=== PATIENT | female | born 1970 | race Caucasian/White ===

== ENCOUNTER 2025-02-11 08:22 | Emergency (ER) | payer OTHER, SELFPAY ==
[2025-02-11] VITALS (34 sets, daily range): BP systolic 81–128; BP diastolic 46–88; PULSE 96–156; RESP 15–29; TEMP 37.5–37.8; O2SAT 93–98; BMI 18.6
--- NOTE | 2025-02-11 08:38 | ED_ITS ---
HPI - General Adult <Nasir Bustamante MD - Last Filed: 02/12/25 08:06> General Chief complaint: Nausea/Vomiting/Diarrhea Stated complaint: Severe LT back px radiating to front; vomiting Time Seen by Provider: 02/11/25 08:30 History of Present Illness HPI narrative: 54-year-old female with history of prior kidney stone, has 2 days duration nontraumatic left flank pain, nausea, multiple episodes nonbloody emesis, no diarrhea. No cough, shortness of breath, chest pain. No anterior abdominal discomfort. No frequency of urination or painful urination. No black or red stools. No trauma, injury, new activities. Pain worse with any movements. No radiation to the legs. Related Data Allergies Allergy/AdvReac Type Severity Reaction Status Date / Time No Known Drug Allergies Allergy Verified 02/11/25 10:24 Patient History <Nasir Bustamante MD - Last Filed: 02/12/25 08:06> Medical History (Updated 02/11/25 @ 15:25 by Shavonne Carlin, RN) Kidney stones Fibromyalgia Occipital neuralgia Trigeminal neuralgia Surgical History (Updated 02/11/25 @ 15:25 by Shavonne Carlin, RN) H/O: hysterectomy H/O lithotripsy History of section Social History Smoking Status: Never smoker Exam <Nasir Bustamante MD - Last Filed: 02/12/25 08:06> Narrative Exam Narrative: GENERAL: Well-developed patient, in mild distress. HEAD: Atraumatic. Normocephalic. EYES: Pupils equal round and reactive. Extraocular motions intact. No scleral icterus. No injection or drainage. ENT: Nose without bleeding, purulent drainage. Throat without erythema, tonsillar hypertrophy or exudate. Airway patent. NECK: Trachea midline. Non tender CARDIOVASCULAR: Regular rate and rhythm without murmurs, gallops, or rubs. RESPIRATORY: Clear to auscultation. Breath sounds equal bilaterally. No wheezes, rales, or rhonchi. GASTROINTESTINAL: Abdomen soft, non-tender, nondistended. EXTREMITIES: No edema or joint tenderness. BACK: Nontender without deformity or crepitance. No flank tenderness. NEURO: AOx3. Motor functions grossly nonfocal SKIN: No rash or erythema of visible areas Initial Vital Signs Initial Vital Signs: Vital Signs Pulse Rate 111 H 02/11/25 08:37 Blood Pressure 111/83 02/11/25 08:37 Pulse Oximetry 98 02/11/25 08:37 <Christina Duffy DO - Last Filed: 02/11/25 21:20> Initial Vital Signs Initial Vital Signs: Vital Signs Pulse Rate 111 H 02/11/25 08:37 Blood Pressure 111/83 02/11/25 08:37 Pulse Oximetry 98 02/11/25 08:37 Course <Nasir Bustamante MD - Last Filed: 02/12/25 08:06> Orders Ordered: Discontinued Medications Hydromorphone HCl (Hydromorphone 0.5 Mg Inj) 0.5 mg IV NOW ONE Stop: 02/11/25 09:09 Last Admin: 02/11/25 09:23 Dose: 0.5 mg Documented By: Sodium Chloride (Normal Saline 0.9%) 1,000 mls @ 1,000 mls/hr IV BOLUS ONE Stop: 02/11/25 10:06 Last Infusion: 02/11/25 10:53 Dose: Infused Documented By: Admin: 02/11/25 09:24 Dose: 1,000 mls/hr Documented By: Ceftriaxone Sodium 2,000 mg/ (Sodium Chloride) 100 mls @ 200 mls/hr IV NOW ONE Stop: 02/11/25 10:26 Last Admin: 02/11/25 11:07 Dose: Not Given Documented By: TETO Sodium Chloride (Normal Saline 0.9%) 1,000 mls @ 1,000 mls/hr IV BOLUS ONE Stop: 02/11/25 11:25 Last Infusion: 02/11/25 12:45 Dose: Infused Documented By: Admin: 02/11/25 10:45 Dose: 1,000 mls/hr Documented By: TETO Ceftriaxone Sodium 2,000 mg/ (Sodium Chloride) 100 mls @ 200 mls/hr IV NOW ONE Stop: 02/11/25 11:29 Last Infusion: 02/11/25 11:59 Dose: Infused Documented By: Admin: 02/11/25 11:07 Dose: 200 mls/hr Documented By: TETO Sodium Chloride (Normal Saline 0.9%) 1,000 mls @ 1,000 mls/hr IV BOLUS ONE Stop: 02/11/25 14:08 Last Infusion: 02/11/25 14:24 Dose: Infused Documented By: Admin: 02/11/25 13:39 Dose: 1,000 mls/hr Documented By: ABIGAIL Piperacillin Sod/Tazobactam (Sod 4.5 gm/ Sodium Chloride) 100 mls @ 200 mls/hr IV NOW ONE Stop: 02/11/25 13:40 Last Infusion: 02/11/25 14:30 Dose: Infused Documented By: Admin: 02/11/25 13:52 Dose: 200 mls/hr Documented By: ABIGAIL Levofloxacin (Levaquin) 750 mg in 150 mls @ 100 mls/hr IV NOW ONE Stop: 02/11/25 21:26 Last Admin: 02/11/25 20:05 Dose: 100 mls/hr Documented By: KIRSTIE Sodium Chloride (Normal Saline 0.9%) 1,000 mls @ 150 mls/hr IV CONT FLORIN Last Admin: 02/11/25 20:55 Dose: 150 mls/hr Documented By: KIRSTIE Ketorolac Tromethamine (Ketorolac 30 Mg/Ml Vial) 15 mg IV NOW ONE Stop: 02/11/25 09:09 Last Admin: 02/11/25 09:23 Dose: 15 mg Documented By: Ketorolac Tromethamine (Ketorolac 30 Mg/Ml Vial) 15 mg IV NOW ONE Stop: 02/11/25 19:58 Last Admin: 02/11/25 20:05 Dose: 15 mg Documented By: KIRSTIE Ondansetron HCl (Ondansetron 4 Mg/2 Ml Inj) 4 mg IV NOW ONE Stop: 02/11/25 09:09 Last Admin: 02/11/25 09:23 Dose: 4 mg Documented By: Vital Signs Vital signs: Vital Signs - 8 hr 02/11/25 13:30 02/11/25 13:30 02/11/25 14:00 Temperature Pulse Rate 114 H 109 H Respiratory Rate 15 19 Blood Pressure 103/57 L 95/59 L Pulse Oximetry 93 94 02/11/25 14:30 02/11/25 15:00 02/11/25 15:20 Temperature 100.1 F H Pulse Rate 110 H 115 H Respiratory Rate 17 20 Blood Pressure 92/53 L 95/52 L Pulse Oximetry 94 96 02/11/25 15:36 02/11/25 16:00 02/11/25 16:26 Temperature 99.7 F H Pulse Rate 112 H 108 H Respiratory Rate 19 19 Blood Pressure 128/57 L 93/52 L Pulse Oximetry 96 96 02/11/25 16:30 02/11/25 17:00 02/11/25 17:30 Temperature Pulse Rate 107 H 109 H Respiratory Rate 20 18 Blood Pressure 102/59 L 94/55 L 97/53 L Pulse Oximetry 97 96 02/11/25 17:30 02/11/25 18:00 02/11/25 18:00 Temperature Pulse Rate 101 H 105 H Respiratory Rate 16 18 Blood Pressure 101/57 L Pulse Oximetry 96 95 02/11/25 19:24 02/11/25 19:25 02/11/25 19:25 Temperature Pulse Rate 104 H 101 H Respiratory Rate Blood Pressure 90/55 L Pulse Oximetry 96 96 02/11/25 19:30 02/11/25 19:58 02/11/25 20:00 Temperature 99.6 F Pulse Rate 96 H 98 H Respiratory Rate 19 22 Blood Pressure 90/52 L 93/55 L Pulse Oximetry 97 95 02/11/25 20:30 02/11/25 20:38 Temperature Pulse Rate 101 H 98 H Respiratory Rate 23 22 Blood Pressure 81/51 L 89/50 L Pulse Oximetry 96 96 <Christina Duffy, - Last Filed: 02/11/25 21:20> Orders Ordered: Discontinued Medications Hydromorphone HCl (Hydromorphone 0.5 Mg Inj) 0.5 mg IV NOW ONE Stop: 02/11/25 09:09 Last Admin: 02/11/25 09:23 Dose: 0.5 mg Documented By: Sodium Chloride (Normal Saline 0.9%) 1,000 mls @ 1,000 mls/hr IV BOLUS ONE Stop: 02/11/25 10:06 Last Infusion: 02/11/25 10:53 Dose: Infused Documented By: Admin: 02/11/25 09:24 Dose: 1,000 mls/hr Documented By: Ceftriaxone Sodium 2,000 mg/ (Sodium Chloride) 100 mls @ 200 mls/hr IV NOW ONE Stop: 02/11/25 10:26 Last Admin: 02/11/25 11:07 Dose: Not Given Documented By: TETO Sodium Chloride (Normal Saline 0.9%) 1,000 mls @ 1,000 mls/hr IV BOLUS ONE Stop: 02/11/25 11:25 Last Infusion: 02/11/25 12:45 Dose: Infused Documented By: Admin: 02/11/25 10:45 Dose: 1,000 mls/hr Documented By: TETO Ceftriaxone Sodium 2,000 mg/ (Sodium Chloride) 100 mls @ 200 mls/hr IV NOW ONE Stop: 02/11/25 11:29 Last Infusion: 02/11/25 11:59 Dose: Infused Documented By: Admin: 02/11/25 11:07 Dose: 200 mls/hr Documented By: TETO Sodium Chloride (Normal Saline 0.9%) 1,000 mls @ 1,000 mls/hr IV BOLUS ONE Stop: 02/11/25 14:08 Last Infusion: 02/11/25 14:24 Dose: Infused Documented By: Admin: 02/11/25 13:39 Dose: 1,000 mls/hr Documented By: ABIGAIL Piperacillin Sod/Tazobactam (Sod 4.5 gm/ Sodium Chloride) 100 mls @ 200 mls/hr IV NOW ONE Stop: 02/11/25 13:40 Last Infusion: 02/11/25 14:30 Dose: Infused Documented By: Admin: 02/11/25 13:52 Dose: 200 mls/hr Documented By: ABIGAIL Levofloxacin (Levaquin) 750 mg in 150 mls @ 100 mls/hr IV NOW ONE Stop: 02/11/25 21:26 Last Admin: 02/11/25 20:05 Dose: 100 mls/hr Documented By: KIRSTIE Sodium Chloride (Normal Saline 0.9%) 1,000 mls @ 150 mls/hr IV CONT FLORIN Last Admin: 02/11/25 20:55 Dose: 150 mls/hr Documented By: KIRSTIE Ketorolac Tromethamine (Ketorolac 30 Mg/Ml Vial) 15 mg IV NOW ONE Stop: 02/11/25 09:09 Last Admin: 02/11/25 09:23 Dose: 15 mg Documented By: Ketorolac Tromethamine (Ketorolac 30 Mg/Ml Vial) 15 mg IV NOW ONE Stop: 02/11/25 19:58 Last Admin: 02/11/25 20:05 Dose: 15 mg Documented By: KIRSTIE Ondansetron HCl (Ondansetron 4 Mg/2 Ml Inj) 4 mg IV NOW ONE Stop: 02/11/25 09:09 Last Admin: 02/11/25 09:23 Dose: 4 mg Documented By: Vital Signs Vital signs: Vital Signs - 8 hr 02/11/25 13:30 02/11/25 13:30 02/11/25 14:00 Temperature Pulse Rate 114 H 109 H Respiratory Rate 15 19 Blood Pressure 103/57 L 95/59 L Pulse Oximetry 93 94 02/11/25 14:30 02/11/25 15:00 02/11/25 15:20 Temperature 100.1 F H Pulse Rate 110 H 115 H Respiratory Rate 17 20 Blood Pressure 92/53 L 95/52 L Pulse Oximetry 94 96 02/11/25 15:36 02/11/25 16:00 02/11/25 16:26 Temperature 99.7 F H Pulse Rate 112 H 108 H Respiratory Rate 19 19 Blood Pressure 128/57 L 93/52 L Pulse Oximetry 96 96 02/11/25 16:30 02/11/25 17:00 02/11/25 17:30 Temperature Pulse Rate 107 H 109 H Respiratory Rate 20 18 Blood Pressure 102/59 L 94/55 L 97/53 L Pulse Oximetry 97 96 02/11/25 17:30 02/11/25 18:00 02/11/25 18:00 Temperature Pulse Rate 101 H 105 H Respiratory Rate 16 18 Blood Pressure 101/57 L Pulse Oximetry 96 95 02/11/25 19:24 02/11/25 19:25 02/11/25 19:25 Temperature Pulse Rate 104 H 101 H Respiratory Rate Blood Pressure 90/55 L Pulse Oximetry 96 96 02/11/25 19:30 02/11/25 19:58 02/11/25 20:00 Temperature 99.6 F Pulse Rate 96 H 98 H Respiratory Rate 19 22 Blood Pressure 90/52 L 93/55 L Pulse Oximetry 97 95 02/11/25 20:30 02/11/25 20:38 Temperature Pulse Rate 101 H 98 H Respiratory Rate 23 22 Blood Pressure 81/51 L 89/50 L Pulse Oximetry 96 96 Medical Decision Making <Nasir Bustamante MD - Last Filed: 02/12/25 08:06> Lab Data Lab results reviewed: Yes I reviewed the patient's lab results. Lab results narrative: White blood cell count 700, differential pending. We will redraw separate specimen for CBC. Hemoglobin 10.5, platelets 252,000. Basic metabolic panel unremarkable. Normal renal function. Slight transaminase elevation, other LFTs normal. Lipase normal. Urinalysis pending. 02/11/25 10:30 02/11/25 09:20 Labs: Lab Results 02/11/25 02/11/25 02/11/25 Range/Units 09:20 09:58 10:30 WBC 0.7 L* 0.9 L* (4.5-11.0) X10^3/uL RBC 3.73 L 3.73 L (4.0-5.2) X10^6/uL Hgb 10.5 L 10.5 L (12.0-16.0) g/dL Hct 31.8 L 31.9 L (36-46) % MCV 85.3 85.6 (80-100) fL MCH 28.3 28.2 (26-34) PG MCHC 33.1 33.0 (30-36) % RDW 16.4 H 16.6 H (11.6-14.8) % Plt Count 252 255 (150-400) X10^3/uL Neut % (Auto) Not Reportable Not Reportable Lymph % (Auto) Not Reportable Not Reportable [place] % (Auto) Not Reportable Not Reportable Eos % (Auto) Not Reportable Not Reportable Baso % (Auto) Not Reportable Not Reportable Lymph # (Auto) Not Reportable Not Reportable [place] # (Auto) Not Reportable Not Reportable Baso # (Auto) Not Reportable Not Reportable Total Counted 100 100 Seg Neutrophils % 61.0 80.0 H (38-70) % Lymphocytes % (Manual) 33.0 17.0 L (25-45) % Monocytes % (Manual) 5.0 2.0 (2-11) % Eosinophils % (Manual) 1.0 L (2-4) % Basophils % (Manual) 1.0 (0-1) % Neutrophils # (Manual) 427 L 720 L (3088-7450) /uL RBC Morphology See below See below Anisocytosis 2+ H 2+ H Rouleaux 1+ H 1+ H Sodium 140 (137-145) mmol/L Potassium 4.1 (3.4-5.1) mmol/L Chloride 105 (98-107) mmol/L Carbon Dioxide 23 (22-32) mmol/L BUN 23 H (7-17) mg/dL Creatinine 0.52 (0.52-1.04) mg/dL Estimated GFR > 60 (>60) mL/min BUN/Creatinine Ratio 44.2 H (6-22) Glucose 97 (70-100) mg/dL Lactate 2.9 H (0.7-2.1) mmol/L Calcium 9.0 (8.4-10.2) mg/dL Total Bilirubin 1.0 (0.2-1.3) mg/dL AST 51 H (14-36) IU/L ALT 40 H (<35) IU/L Alkaline Phosphatase 96 (38-126) U/L Total Protein 7.9 (6.3-8.2) g/dL Albumin 4.6 (3.5-5.0) g/dL Globulin 3.3 (1.7-4.1) g/dL Albumin/Globulin Ratio 1.4 (1.0-2.8) Lipase 168 (23-300) U/L Urine Color Urine Appearance Urine pH (4.5-8.0) Ur Specific [place] (1.000-1.035) Urine Protein (Negative) Urine Glucose (UA) (Negative) g/dL Urine Ketones (NEGATIVE) Urine Occult Blood (Negative) Urine Nitrate (Negative) Urine Bilirubin (NEGATIVE) Urine Urobilinogen (0.2) E.U./dL Ur Leukocyte Esterase (NEGATIVE) Urine RBC Urine WBC Ur Squamous Epith Cells Ur Transition Epith Cell Ur Renal Epithelial Cell Calcium Oxalate Crystal Uric Acid Crystals Triple Phos Crystals Other Crystals Amorphous Sediment Urine Bacteria Hyaline Casts Granular Casts RBC Casts WBC Casts Other Casts Urine Mucus Urine Trichomonas Urine Yeast Urine Sperm Ur Culture Indicated? Micro UA Comment Vol Urine Centrifuged A.calcoaceticus-baumannii cmplx PCR Not detected (Not Detect) Bacteroides fragilis Not detected (Not Detect) Arielle albicans (PCR) Not detected (Not Detect) Arielle auris (PCR) Not detected (Not Detect) C. glabrata (PCR) Not detected (Not Detect) C. krusei (PCR) Not detected (Not Detect) C. parapsilosis (PCR) Not detected (Not Detect) C. tropicalis (PCR) Not detected (Not Detect) C. neoform/gattii (PCR) Not detected (Not Detect) Enterobacterales (PCR) Detected (Not Detect) E. cloacae complex PCR Not detected (Not Detect) Enterococc faecalis PCR Not detected (Not Detect) Enterococc faecium PCR Not detected (Not Detect) E. coli (PCR) Detected (Not Detect) H. influenzae (PCR) Not detected (Not Detect) Klebsiella aerogenes (PCR) Not detected (Not Detect) Klebsiella oxytoca PCR Not detected (Not Detect) Klebsiella pneumoniae Not detected (Not Detect) List. monocytogenes PCR Not detected (Not Detect) N. meningitidis (PCR) Not detected (Not Detect) Proteus species (PCR) Not detected (Not Detect) Salmonella spp. (PCR) Not detected (Not Detect) Serratia marcescens PCR Not detected (Not Detect) Staphylococcus sp PCR Not detected (Not Detect) Staph aureus (PCR) Not detected (Not Detect) mecA/C & MREJ Resist Gene Not applicable (Not Detect) mecA/C-Methicil Resis Gene Not applicable (Not Detect) mcr-1 Colistin Res Gene PCR Not detected (Not Detect) Staph epidermidis (PCR) Not detected (Not Detect) Staph lugdunensis PCR Not detected (Not Detect) S. maltophilia (PCR) Not detected (Not Detect) Streptococcus sp PCR Not detected (Not Detect) Group A Strep (PCR) Not detected (Not Detect) Strep agalactiae (PCR) Not detected (Not Detect) Strep pneumoniae (PCR) Not detected (Not Detect) P. aeruginosa (PCR) Not detected (Not Detect) Dorene/B-Vanco Res Genes Not applicable (Not Detect) blaIMP Car res Gene PCR Not detected (Not Detect) KPC-Carbap Res Gene PCR Not detected (Not Detect) blaNDM Car Res Gene PCR Not detected (Not Detect) OXA-48 Carbapenem Resis Gene (PCR) Not detected (Not Detect) blaVIM Car Res Gene PCR Not detected (Not Detect) CTX-M Gene Resistance (PCR) Not detected (Not Detect) 02/11/25 02/11/25 02/11/25 Range/Units 11:15 11:20 11:22 WBC (4.5-11.0) X10^3/uL RBC (4.0-5.2) X10^6/uL Hgb (12.0-16.0) g/dL Hct (36-46) % MCV (80-100) fL MCH (26-34) PG MCHC (30-36) % RDW (11.6-14.8) % Plt Count (150-400) X10^3/uL Neut % (Auto) Lymph % (Auto) [place] % (Auto) Eos % (Auto) Baso % (Auto) Lymph # (Auto) [place] # (Auto) Baso # (Auto) Total Counted Seg Neutrophils % (38-70) % Lymphocytes % (Manual) (25-45) % Monocytes % (Manual) (2-11) % Eosinophils % (Manual) (2-4) % Basophils % (Manual) (0-1) % Neutrophils # (Manual) (0798-5538) /uL RBC Morphology Anisocytosis Rouleaux Sodium (137-145) mmol/L Potassium (3.4-5.1) mmol/L Chloride (98-107) mmol/L Carbon Dioxide (22-32) mmol/L BUN (7-17) mg/dL Creatinine (0.52-1.04) mg/dL Estimated GFR (>60) mL/min BUN/Creatinine Ratio (6-22) Glucose (70-100) mg/dL Lactate 1.3 (0.7-2.1) mmol/L Calcium (8.4-10.2) mg/dL Total Bilirubin (0.2-1.3) mg/dL AST (14-36) IU/L ALT (<35) IU/L Alkaline Phosphatase (38-126) U/L Total Protein (6.3-8.2) g/dL Albumin (3.5-5.0) g/dL Globulin (1.7-4.1) g/dL Albumin/Globulin Ratio (1.0-2.8) Lipase (23-300) U/L Urine Color Yellow Urine Appearance Cloudy Urine pH 5.5 (4.5-8.0) Ur Specific [place] 1.015 (1.000-1.035) Urine Protein 1+ H (Negative) Urine Glucose (UA) Negative (Negative) g/dL Urine Ketones Trace H (NEGATIVE) Urine Occult Blood 2+ H (Negative) Urine Nitrate Positive H (Negative) Urine Bilirubin Negative (NEGATIVE) Urine Urobilinogen 0.2 (0.2) E.U./dL Ur Leukocyte Esterase Trace H (NEGATIVE) Urine RBC Cancelled 5-10/hpf H Urine WBC Cancelled 5-10/hpf H Ur Squamous Epith Cells Cancelled None seen Ur Transition Epith Cell Cancelled Ur Renal Epithelial Cell Cancelled Calcium Oxalate Crystal Cancelled Uric Acid Crystals Cancelled Triple Phos Crystals Cancelled Other Crystals Cancelled Amorphous Sediment Cancelled Urine Bacteria Cancelled Many (>30) H Hyaline Casts Cancelled Granular Casts Cancelled RBC Casts Cancelled WBC Casts Cancelled Other Casts Cancelled Urine Mucus Cancelled Urine Trichomonas Cancelled Urine Yeast Cancelled Urine Sperm Cancelled Ur Culture Indicated? Cancelled Specimen cultured Micro UA Comment Cancelled Vol Urine Centrifuged Cancelled 10ml (spun) A.calcoaceticus-baumannii cmplx PCR (Not Detect) Bacteroides fragilis (Not Detect) Arielle albicans (PCR) (Not Detect) Arielle auris (PCR) (Not Detect) C. glabrata (PCR) (Not Detect) C. krusei (PCR) (Not Detect) C. parapsilosis (PCR) (Not Detect) C. tropicalis (PCR) (Not Detect) C. neoform/gattii (PCR) (Not Detect) Enterobacterales (PCR) (Not Detect) E. cloacae complex PCR (Not Detect) Enterococc faecalis PCR (Not Detect) Enterococc faecium PCR (Not Detect) E. coli (PCR) (Not Detect) H. influenzae (PCR) (Not Detect) Klebsiella aerogenes (PCR) (Not Detect) Klebsiella oxytoca PCR (Not Detect) Klebsiella pneumoniae (Not Detect) List. monocytogenes PCR (Not Detect) N. meningitidis (PCR) (Not Detect) Proteus species (PCR) (Not Detect) Salmonella spp. (PCR) (Not Detect) Serratia marcescens PCR (Not Detect) Staphylococcus sp PCR (Not Detect) Staph aureus (PCR) (Not Detect) mecA/C & MREJ Resist Gene (Not Detect) mecA/C-Methicil Resis Gene (Not Detect) mcr-1 Colistin Res Gene PCR (Not Detect) Staph epidermidis (PCR) (Not Detect) Staph lugdunensis PCR (Not Detect) S. maltophilia (PCR) (Not Detect) Streptococcus sp PCR (Not Detect) Group A Strep (PCR) (Not Detect) Strep agalactiae (PCR) (Not Detect) Strep pneumoniae (PCR) (Not Detect) P. aeruginosa (PCR) (Not Detect) [place]ne/B-Vanco Res Genes (Not Detect) blaIMP Car res Gene PCR (Not Detect) KPC-Carbap Res Gene PCR (Not Detect) blaNDM Car Res Gene PCR (Not Detect) OXA-48 Carbapenem Resis Gene (PCR) (Not Detect) blaVIM Car Res Gene PCR (Not Detect) CTX-M Gene Resistance (PCR) (Not Detect) 02/11/25 Range/Units 15:15 WBC (4.5-11.0) X10^3/uL RBC (4.0-5.2) X10^6/uL Hgb (12.0-16.0) g/dL Hct (36-46) % MCV (80-100) fL MCH (26-34) PG MCHC (30-36) % RDW (11.6-14.8) % Plt Count (150-400) X10^3/uL Neut % (Auto) Lymph % (Auto) [place] % (Auto) Eos % (Auto) Baso % (Auto) Lymph # (Auto) [place] # (Auto) Baso # (Auto) Total Counted Seg Neutrophils % (38-70) % Lymphocytes % (Manual) (25-45) % Monocytes % (Manual) (2-11) % Eosinophils % (Manual) (2-4) % Basophils % (Manual) (0-1) % Neutrophils # (Manual) (3013-9279) /uL RBC Morphology Anisocytosis Rouleaux Sodium (137-145) mmol/L Potassium (3.4-5.1) mmol/L Chloride (98-107) mmol/L Carbon Dioxide (22-32) mmol/L BUN (7-17) mg/dL Creatinine (0.52-1.04) mg/dL Estimated GFR (>60) mL/min BUN/Creatinine Ratio (6-22) Glucose (70-100) mg/dL Lactate 1.1 (0.7-2.1) mmol/L Calcium (8.4-10.2) mg/dL Total Bilirubin (0.2-1.3) mg/dL AST (14-36) IU/L ALT (<35) IU/L Alkaline Phosphatase (38-126) U/L Total Protein (6.3-8.2) g/dL Albumin (3.5-5.0) g/dL Globulin (1.7-4.1) g/dL Albumin/Globulin Ratio (1.0-2.8) Lipase (23-300) U/L Urine Color Urine Appearance Urine pH (4.5-8.0) Ur Specific [place] (1.000-1.035) Urine Protein (Negative) Urine Glucose (UA) (Negative) g/dL Urine Ketones (NEGATIVE) Urine Occult Blood (Negative) Urine Nitrate (Negative) Urine Bilirubin (NEGATIVE) Urine Urobilinogen (0.2) E.U./dL Ur Leukocyte Esterase (NEGATIVE) Urine RBC Urine WBC Ur Squamous Epith Cells Ur Transition Epith Cell Ur Renal Epithelial Cell Calcium Oxalate Crystal Uric Acid Crystals Triple Phos Crystals Other Crystals Amorphous Sediment Urine Bacteria Hyaline Casts Granular Casts RBC Casts WBC Casts Other Casts Urine Mucus Urine Trichomonas Urine Yeast Urine Sperm Ur Culture Indicated? Micro UA Comment Vol Urine Centrifuged A.calcoaceticus-baumannii cmplx PCR (Not Detect) Bacteroides fragilis (Not Detect) Arielle albicans (PCR) (Not Detect) Arielle auris (PCR) (Not Detect) C. glabrata (PCR) (Not Detect) C. krusei (PCR) (Not Detect) C. parapsilosis (PCR) (Not Detect) C. tropicalis (PCR) (Not Detect) C. neoform/gattii (PCR) (Not Detect) Enterobacterales (PCR) (Not Detect) E. cloacae complex PCR (Not Detect) Enterococc faecalis PCR (Not Detect) Enterococc faecium PCR (Not Detect) E. coli (PCR) (Not Detect) H. influenzae (PCR) (Not Detect) Klebsiella aerogenes (PCR) (Not Detect) Klebsiella oxytoca PCR (Not Detect) Klebsiella pneumoniae (Not Detect) List. monocytogenes PCR (Not Detect) N. meningitidis (PCR) (Not Detect) Proteus species (PCR) (Not Detect) Salmonella spp. (PCR) (Not Detect) Serratia marcescens PCR (Not Detect) Staphylococcus sp PCR (Not Detect) Staph aureus (PCR) (Not Detect) mecA/C & MREJ Resist Gene (Not Detect) mecA/C-Methicil Resis Gene (Not Detect) mcr-1 Colistin Res Gene PCR (Not Detect) Staph epidermidis (PCR) (Not Detect) Staph lugdunensis PCR (Not Detect) S. maltophilia (PCR) (Not Detect) Streptococcus sp PCR (Not Detect) Group A Strep (PCR) (Not Detect) Strep agalactiae (PCR) (Not Detect) Strep pneumoniae (PCR) (Not Detect) P. aeruginosa (PCR) (Not Detect) Dorene/B-Vanco Res Genes (Not Detect) blaIMP Car res Gene PCR (Not Detect) KPC-Carbap Res Gene PCR (Not Detect) blaNDM Car Res Gene PCR (Not Detect) OXA-48 Carbapenem Resis Gene (PCR) (Not Detect) blaVIM Car Res Gene PCR (Not Detect) CTX-M Gene Resistance (PCR) (Not Detect) Urine Dip Bedside Urine Glucose Negative Bedside Urine Bilirubin - Negative Bedside Urine Ketone - Negative Urine Specific [place] 1.010 Bedside Urine Occult Blood +++ Bedside Urine pH 6 Bedside Urine Protein +/- 15 Bedside Urine Urobilinogen - Negative Bedside Urine Nitrite + Positive Bedside Urine Leukocytes +/- 15 Esterase Point of care testing: Urine Dip Bedside Urine Glucose Negative Bedside Urine Bilirubin - Negative Bedside Urine Ketone - Negative Urine Specific [place] 1.010 Bedside Urine Occult Blood +++ Bedside Urine pH 6 Bedside Urine Protein +/- 15 Bedside Urine Urobilinogen - Negative Bedside Urine Nitrite + Positive Bedside Urine Leukocytes +/- 15 Esterase ECG Data Attestation: I personally reviewed and interpreted this ECG as follows: Interpretation: Sinus tachycardia with rate of 116, no obvious ST segment elevation or depression changes. Movement artifact noted. CO 198, QRS 70, QTC 453. MDM Narrative Medical decision making narrative: 54-year-old female with history of prior kidney stone, 2 days duration nontraumatic left flank pain, mild sinus tachycardia, no fever, looks uncomfortable. No medications taken this far. Multiple episodes emesis. Labs pending. CT abdomen and pelvis noncontrast study ordered. IV fluids, IV Toradol, IV Dilaudid/Zofran. Keep NPO for now. DDX consider left ureteral stone, pyelonephritis, renal abscess, diverticulitis, colitis, lower lobe pneumonia, referred pain from gynecologic process, musculoskeletal, radicular, other. CT abdomen and pelvis noncontrast. Impressions: ?Mild left hydroureteronephrosis secondary to a 4 mm calculus at the ureterovesicular junction. Consider superimposed pyelonephritis. Nonspecific central mesenteric lymphadenopathy. Nonemergent colonoscopy screening recommended. ? See tele radiology report. Elevated lactate, blood cultures requested, IV fluids, IV ceftriaxone. White blood cell count 700 quite low, we will repeat new specimen draw to confirm. ANC 427 low. Might need transfer to hematology/oncology capable facility, as well as Urology capable facility. Weekend coverage Urology through [facility]. Await repeat CBC results. Repeat CBC confirms leukopenia. White blood cell count 900 only. Segmented neutrophils 80%, manual neutrophil count 720. Urinalysis suspicious for infection. IV ceftriaxone given prior. Leukopenia noted. Consider transfer to Urology and Hematology/Oncology capable facility. We will contact urology on-call [facility]. 1330, case discussed with Urology [facility] [place] Dr. Salas who will consult if transferred to their system. 1410, case discussed with [facility] intake, await call back. No beds [facility], [facility] apparently unable to accept, [facility] assisting with placement 1750, case discussed with hospitalist Dr. Jorge Whitmore who accepts for transfer, Urology Dr. Minor will be consulting. 02/11/25 Dr. Duffy 1955: Patient signed out to myself patient is seen and evaluated by myself patient has left 4 mm calculus likely pyelonephritis. Patient has had intermittently soft pressures although she had noted blood pressure tends to run low she does not receive sepsis fluids, she was received IV antibiotics Rocephin and Zosyn patient's white count is quite low not quite neutropenic but ANC was 427 on repeat was slightly higher. Patient's lactate was elevated but improved, has a normal creatinine. Patient's pain has been fairly well controlled since this morning. Awaiting bed assignment patient is aware of plan for transfer for urologic intervention for septic obstructive kidney stone. Patient notes she was starting a little bit of a headache from being still all day she states her flank pain is actually very well controlled she was feeling better than she was earlier. Two of 2 blood cultures have come back positive for Gram-negative bacilli patient had Rocephin this morning followed by Zosyn we will give a dose of Levaquin she should be covered for the next 24 hours. <Christina Duffy, DO - Last Filed: 02/11/25 21:20> Lab Data Labs: Lab Results 02/11/25 02/11/25 02/11/25 Range/Units 09:20 09:58 10:30 WBC 0.7 L* 0.9 L* (4.5-11.0) X10^3/uL RBC 3.73 L 3.73 L (4.0-5.2) X10^6/uL Hgb 10.5 L 10.5 L (12.0-16.0) g/dL Hct 31.8 L 31.9 L (36-46) % MCV 85.3 85.6 (80-100) fL MCH 28.3 28.2 (26-34) PG MCHC 33.1 33.0 (30-36) % RDW 16.4 H 16.6 H (11.6-14.8) % Plt Count 252 255 (150-400) X10^3/uL Neut % (Auto) Not Reportable Not Reportable Lymph % (Auto) Not Reportable Not Reportable [place] % (Auto) Not Reportable Not Reportable Eos % (Auto) Not Reportable Not Reportable Baso % (Auto) Not Reportable Not Reportable Lymph # (Auto) Not Reportable Not Reportable [place] # (Auto) Not Reportable Not Reportable Baso # (Auto) Not Reportable Not Reportable Total Counted 100 100 Seg Neutrophils % 61.0 80.0 H (38-70) % Lymphocytes % (Manual) 33.0 17.0 L (25-45) % Monocytes % (Manual) 5.0 2.0 (2-11) % Eosinophils % (Manual) 1.0 L (2-4) % Basophils % (Manual) 1.0 (0-1) % Neutrophils # (Manual) 427 L 720 L (4803-3840) /uL RBC Morphology See below See below Anisocytosis 2+ H 2+ H Rouleaux 1+ H 1+ H Sodium 140 (137-145) mmol/L Potassium 4.1 (3.4-5.1) mmol/L Chloride 105 (98-107) mmol/L Carbon Dioxide 23 (22-32) mmol/L BUN 23 H (7-17) mg/dL Creatinine 0.52 (0.52-1.04) mg/dL Estimated GFR > 60 (>60) mL/min BUN/Creatinine Ratio 44.2 H (6-22) Glucose 97 (70-100) mg/dL Lactate 2.9 H (0.7-2.1) mmol/L Calcium 9.0 (8.4-10.2) mg/dL Total Bilirubin 1.0 (0.2-1.3) mg/dL AST 51 H (14-36) IU/L ALT 40 H (<35) IU/L Alkaline Phosphatase 96 (38-126) U/L Total Protein 7.9 (6.3-8.2) g/dL Albumin 4.6 (3.5-5.0) g/dL Globulin 3.3 (1.7-4.1) g/dL Albumin/Globulin Ratio 1.4 (1.0-2.8) Lipase 168 (23-300) U/L Urine Color Urine Appearance Urine pH (4.5-8.0) Ur Specific [place] (1.000-1.035) Urine Protein (Negative) Urine Glucose (UA) (Negative) g/dL Urine Ketones (NEGATIVE) Urine Occult Blood (Negative) Urine Nitrate (Negative) Urine Bilirubin (NEGATIVE) Urine Urobilinogen (0.2) E.U./dL Ur Leukocyte Esterase (NEGATIVE) Urine RBC Urine WBC Ur Squamous Epith Cells Ur Transition Epith Cell Ur Renal Epithelial Cell Calcium Oxalate Crystal Uric Acid Crystals Triple Phos Crystals Other Crystals Amorphous Sediment Urine Bacteria Hyaline Casts Granular Casts RBC Casts WBC Casts Other Casts Urine Mucus Urine Trichomonas Urine Yeast Urine Sperm Ur Culture Indicated? Micro UA Comment Vol Urine Centrifuged A.calcoaceticus-baumannii cmplx PCR Not detected (Not Detect) Bacteroides fragilis Not detected (Not Detect) Arielle albicans (PCR) Not detected (Not Detect) Arielle auris (PCR) Not detected (Not Detect) C. glabrata (PCR) Not detected (Not Detect) C. krusei (PCR) Not detected (Not Detect) C. parapsilosis (PCR) Not detected (Not Detect) C. tropicalis (PCR) Not detected (Not Detect) C. neoform/gattii (PCR) Not detected (Not Detect) Enterobacterales (PCR) Detected (Not Detect) E. cloacae complex PCR Not detected (Not Detect) Enterococc faecalis PCR Not detected (Not Detect) Enterococc faecium PCR Not detected (Not Detect) E. coli (PCR) Detected (Not Detect) H. influenzae (PCR) Not detected (Not Detect) Klebsiella aerogenes (PCR) Not detected (Not Detect) Klebsiella oxytoca PCR Not detected (Not Detect) Klebsiella pneumoniae Not detected (Not Detect) List. monocytogenes PCR Not detected (Not Detect) N. meningitidis (PCR) Not detected (Not Detect) Proteus species (PCR) Not detected (Not Detect) Salmonella spp. (PCR) Not detected (Not Detect) Serratia marcescens PCR Not detected (Not Detect) Staphylococcus sp PCR Not detected (Not Detect) Staph aureus (PCR) Not detected (Not Detect) mecA/C & MREJ Resist Gene Not applicable (Not Detect) mecA/C-Methicil Resis Gene Not applicable (Not Detect) mcr-1 Colistin Res Gene PCR Not detected (Not Detect) Staph epidermidis (PCR) Not detected (Not Detect) Staph lugdunensis PCR Not detected (Not Detect) S. maltophilia (PCR) Not detected (Not Detect) Streptococcus sp PCR Not detected (Not Detect) Group A Strep (PCR) Not detected (Not Detect) Strep agalactiae (PCR) Not detected (Not Detect) Strep pneumoniae (PCR) Not detected (Not Detect) P. aeruginosa (PCR) Not detected (Not Detect) Dorene/B-Vanco Res Genes Not applicable (Not Detect) blaIMP Car res Gene PCR Not detected (Not Detect) KPC-Carbap Res Gene PCR Not detected (Not Detect) blaNDM Car Res Gene PCR Not detected (Not Detect) OXA-48 Carbapenem Resis Gene (PCR) Not detected (Not Detect) blaVIM Car Res Gene PCR Not detected (Not Detect) CTX-M Gene Resistance (PCR) Not detected (Not Detect) 02/11/25 02/11/25 02/11/25 Range/Units 11:15 11:20 11:22 WBC (4.5-11.0) X10^3/uL RBC (4.0-5.2) X10^6/uL Hgb (12.0-16.0) g/dL Hct (36-46) % MCV (80-100) fL MCH (26-34) PG MCHC (30-36) % RDW (11.6-14.8) % Plt Count (150-400) X10^3/uL Neut % (Auto) Lymph % (Auto) [place] % (Auto) Eos % (Auto) Baso % (Auto) Lymph # (Auto) [place] # (Auto) Baso # (Auto) Total Counted Seg Neutrophils % (38-70) % Lymphocytes % (Manual) (25-45) % Monocytes % (Manual) (2-11) % Eosinophils % (Manual) (2-4) % Basophils % (Manual) (0-1) % Neutrophils # (Manual) (2133-1399) /uL RBC Morphology Anisocytosis Rouleaux Sodium (137-145) mmol/L Potassium (3.4-5.1) mmol/L Chloride (98-107) mmol/L Carbon Dioxide (22-32) mmol/L BUN (7-17) mg/dL Creatinine (0.52-1.04) mg/dL Estimated GFR (>60) mL/min BUN/Creatinine Ratio (6-22) Glucose (70-100) mg/dL Lactate 1.3 (0.7-2.1) mmol/L Calcium (8.4-10.2) mg/dL Total Bilirubin (0.2-1.3) mg/dL AST (14-36) IU/L ALT (<35) IU/L Alkaline Phosphatase (38-126) U/L Total Protein (6.3-8.2) g/dL Albumin (3.5-5.0) g/dL Globulin (1.7-4.1) g/dL Albumin/Globulin Ratio (1.0-2.8) Lipase (23-300) U/L Urine Color Yellow Urine Appearance Cloudy Urine pH 5.5 (4.5-8.0) Ur Specific [place] 1.015 (1.000-1.035) Urine Protein 1+ H (Negative) Urine Glucose (UA) Negative (Negative) g/dL Urine Ketones Trace H (NEGATIVE) Urine Occult Blood 2+ H (Negative) Urine Nitrate Positive H (Negative) Urine Bilirubin Negative (NEGATIVE) Urine Urobilinogen 0.2 (0.2) E.U./dL Ur Leukocyte Esterase Trace H (NEGATIVE) Urine RBC Cancelled 5-10/hpf H Urine WBC Cancelled 5-10/hpf H Ur Squamous Epith Cells Cancelled None seen Ur Transition Epith Cell Cancelled Ur Renal Epithelial Cell Cancelled Calcium Oxalate Crystal Cancelled Uric Acid Crystals Cancelled Triple Phos Crystals Cancelled Other Crystals Cancelled Amorphous Sediment Cancelled Urine Bacteria Cancelled Many (>30) H Hyaline Casts Cancelled Granular Casts Cancelled RBC Casts Cancelled WBC Casts Cancelled Other Casts Cancelled Urine Mucus Cancelled Urine Trichomonas Cancelled Urine Yeast Cancelled Urine Sperm Cancelled Ur Culture Indicated? Cancelled Specimen cultured Micro UA Comment Cancelled Vol Urine Centrifuged Cancelled 10ml (spun) A.calcoaceticus-baumannii cmplx PCR (Not Detect) Bacteroides fragilis (Not Detect) Arielle albicans (PCR) (Not Detect) Arielle auris (PCR) (Not Detect) C. glabrata (PCR) (Not Detect) C. krusei (PCR) (Not Detect) C. parapsilosis (PCR) (Not Detect) C. tropicalis (PCR) (Not Detect) C. neoform/gattii (PCR) (Not Detect) Enterobacterales (PCR) (Not Detect) E. cloacae complex PCR (Not Detect) Enterococc faecalis PCR (Not Detect) Enterococc faecium PCR (Not Detect) E. coli (PCR) (Not Detect) H. influenzae (PCR) (Not Detect) Klebsiella aerogenes (PCR) (Not Detect) Klebsiella oxytoca PCR (Not Detect) Klebsiella pneumoniae (Not Detect) List. monocytogenes PCR (Not Detect) N. meningitidis (PCR) (Not Detect) Proteus species (PCR) (Not Detect) Salmonella spp. (PCR) (Not Detect) Serratia marcescens PCR (Not Detect) Staphylococcus sp PCR (Not Detect) Staph aureus (PCR) (Not Detect) mecA/C & MREJ Resist Gene (Not Detect) mecA/C-Methicil Resis Gene (Not Detect) mcr-1 Colistin Res Gene PCR (Not Detect) Staph epidermidis (PCR) (Not Detect) Staph lugdunensis PCR (Not Detect) S. maltophilia (PCR) (Not Detect) Streptococcus sp PCR (Not Detect) Group A Strep (PCR) (Not Detect) Strep agalactiae (PCR) (Not Detect) Strep pneumoniae (PCR) (Not Detect) P. aeruginosa (PCR) (Not Detect) Dorene/B-Vanco Res Genes (Not Detect) blaIMP Car res Gene PCR (Not Detect) KPC-Carbap Res Gene PCR (Not Detect) blaNDM Car Res Gene PCR (Not Detect) OXA-48 Carbapenem Resis Gene (PCR) (Not Detect) blaVIM Car Res Gene PCR (Not Detect) CTX-M Gene Resistance (PCR) (Not Detect) 03/22/25 Range/Units 15:15 WBC (4.5-11.0) X10^3/uL RBC (4.0-5.2) X10^6/uL Hgb (12.0-16.0) g/dL Hct (36-46) % MCV (80-100) fL MCH (26-34) PG MCHC (30-36) % RDW (11.6-14.8) % Plt Count (150-400) X10^3/uL Neut % (Auto) Lymph % (Auto) [place] % (Auto) Eos % (Auto) Baso % (Auto) Lymph # (Auto) [place] # (Auto) Baso # (Auto) Total Counted Seg Neutrophils % (38-70) % Lymphocytes % (Manual) (25-45) % Monocytes % (Manual) (2-11) % Eosinophils % (Manual) (2-4) % Basophils % (Manual) (0-1) % Neutrophils # (Manual) (8114-8255) /uL RBC Morphology Anisocytosis Rouleaux Sodium (137-145) mmol/L Potassium (3.4-5.1) mmol/L Chloride (98-107) mmol/L Carbon Dioxide (22-32) mmol/L BUN (7-17) mg/dL Creatinine (0.52-1.04) mg/dL Estimated GFR (>60) mL/min BUN/Creatinine Ratio (6-22) Glucose (70-100) mg/dL Lactate 1.1 (0.7-2.1) mmol/L Calcium (8.4-10.2) mg/dL Total Bilirubin (0.2-1.3) mg/dL AST (14-36) IU/L ALT (<35) IU/L Alkaline Phosphatase (38-126) U/L Total Protein (6.3-8.2) g/dL Albumin (3.5-5.0) g/dL Globulin (1.7-4.1) g/dL Albumin/Globulin Ratio (1.0-2.8) Lipase (23-300) U/L Urine Color Urine Appearance Urine pH (4.5-8.0) Ur Specific [place] (1.000-1.035) Urine Protein (Negative) Urine Glucose (UA) (Negative) g/dL Urine Ketones (NEGATIVE) Urine Occult Blood (Negative) Urine Nitrate (Negative) Urine Bilirubin (NEGATIVE) Urine Urobilinogen (0.2) E.U./dL Ur Leukocyte Esterase (NEGATIVE) Urine RBC Urine WBC Ur Squamous Epith Cells Ur Transition Epith Cell Ur Renal Epithelial Cell Calcium Oxalate Crystal Uric Acid Crystals Triple Phos Crystals Other Crystals Amorphous Sediment Urine Bacteria Hyaline Casts Granular Casts RBC Casts WBC Casts Other Casts Urine Mucus Urine Trichomonas Urine Yeast Urine Sperm Ur Culture Indicated? Micro UA Comment Vol Urine Centrifuged A.calcoaceticus-baumannii cmplx PCR (Not Detect) Bacteroides fragilis (Not Detect) Arielle albicans (PCR) (Not Detect) Arielle auris (PCR) (Not Detect) C. glabrata (PCR) (Not Detect) C. krusei (PCR) (Not Detect) C. parapsilosis (PCR) (Not Detect) C. tropicalis (PCR) (Not Detect) C. neoform/gattii (PCR) (Not Detect) Enterobacterales (PCR) (Not Detect) E. cloacae complex PCR (Not Detect) Enterococc faecalis PCR (Not Detect) Enterococc faecium PCR (Not Detect) E. coli (PCR) (Not Detect) H. influenzae (PCR) (Not Detect) Klebsiella aerogenes (PCR) (Not Detect) Klebsiella oxytoca PCR (Not Detect) Klebsiella pneumoniae (Not Detect) List. monocytogenes PCR (Not Detect) N. meningitidis (PCR) (Not Detect) Proteus species (PCR) (Not Detect) Salmonella spp. (PCR) (Not Detect) Serratia marcescens PCR (Not Detect) Staphylococcus sp PCR (Not Detect) Staph aureus (PCR) (Not Detect) mecA/C & MREJ Resist Gene (Not Detect) mecA/C-Methicil Resis Gene (Not Detect) mcr-1 Colistin Res Gene PCR (Not Detect) Staph epidermidis (PCR) (Not Detect) Staph lugdunensis PCR (Not Detect) S. maltophilia (PCR) (Not Detect) Streptococcus sp PCR (Not Detect) Group A Strep (PCR) (Not Detect) Strep agalactiae (PCR) (Not Detect) Strep pneumoniae (PCR) (Not Detect) P. aeruginosa (PCR) (Not Detect) Dorene/B-Vanco Res Genes (Not Detect) blaIMP Car res Gene PCR (Not Detect) KPC-Carbap Res Gene PCR (Not Detect) blaNDM Car Res Gene PCR (Not Detect) OXA-48 Carbapenem Resis Gene (PCR) (Not Detect) blaVIM Car Res Gene PCR (Not Detect) CTX-M Gene Resistance (PCR) (Not Detect) Urine Dip Bedside Urine Glucose Negative Bedside Urine Bilirubin - Negative Bedside Urine Ketone - Negative Urine Specific [place] 1.010 Bedside Urine Occult Blood +++ Bedside Urine pH 6 Bedside Urine Protein +/- 15 Bedside Urine Urobilinogen - Negative Bedside Urine Nitrite + Positive Bedside Urine Leukocytes +/- 15 Esterase Point of care testing: Urine Dip Bedside Urine Glucose Negative Bedside Urine Bilirubin - Negative Bedside Urine Ketone - Negative Urine Specific [place] 1.010 Bedside Urine Occult Blood +++ Bedside Urine pH 6 Bedside Urine Protein +/- 15 Bedside Urine Urobilinogen - Negative Bedside Urine Nitrite + Positive Bedside Urine Leukocytes +/- 15 Esterase MDM Narrative Medical decision making narrative: 54-year-old female with history of prior kidney stone, 2 days' duration nontraumatic left kidney pain, mild sinus tachycardia, no fever, looks uncomfortable. No medications taken this far. Multiple episodes emesis. Labs pending. CT abdomen and pelvis noncontrast study ordered. IV fluids, IV Toradol, IV Dilaudid/Zofran. Keep NPO for now. DDX consider left ureteral stone, pyelonephritis, renal abscess, diverticulitis, colitis, lower lobe pneumonia, referred pain from gynecologic process, musculoskeletal, radicular, other. CT abdomen and pelvis noncontrast. Impressions: ?Mild left hydroureteronephrosis secondary to a 4 mm calculus at the ureterovesicular junction. Consider superimposed pyelonephritis. Nonspecific central mesenteric lymphadenopathy. Nonemergent colonoscopy screening recommended. ? See tele radiology report. Elevated lactate, blood cultures requested, IV fluids, IV ceftriaxone. White blood cell count 700 quite low, we will repeat new specimen draw to confirm. ANC 427 low. Might need transfer to hematology/oncology capable facility, as well as Urology capable facility. Weekend coverage Urology through [facility]. Await repeat CBC results. Repeat CBC confirms leukopenia. White blood cell count 900 only. Segmented neutrophils 80%, manual neutrophil count 720. Urinalysis suspicious for infection. IV ceftriaxone given prior. Leukopenia noted. Consider transfer to Urology and Hematology/Oncology capable facility. We will contact urology on-call [facility]. 1330, case discussed with Urology [facility] Dr. Salas who will consult if transferred to their system. 1410, case discussed with [facility] intake, await call back. [facility] with placement 1750, case discussed with hospitalist Dr. Jorge Whitmore who accepts for transfer, Urology Dr. Minor will be consulting. 02/11/25 Dr. Duffy 1955: Patient signed out to myself patient is seen and evaluated by myself patient has left 4 mm calculus likely pyelonephritis. Patient has had intermittently soft pressures although she had noted blood pressure tends to run low she does not receive sepsis fluids, she was received IV antibiotics Rocephin and Zosyn patient's white count is quite low not quite neutropenic but ANC was 427 on repeat was slightly higher. Patient's lactate was elevated but improved, has a normal creatinine. Patient's pain has been fairly well controlled since this morning. Awaiting bed assignment patient is aware of plan for transfer for urologic intervention for septic obstructive kidney stone. Patient notes she was starting a little bit of a headache from being still all day she states her flank pain is actually very well controlled she was feeling better than she was earlier. Two of 2 blood cultures have come back positive for Gram-negative bacilli patient had Rocephin this morning followed by Zosyn we will give a dose of Levaquin she should be covered for the next 24 hours. Patient was placed on maintenance fluids. Critical Care Time <Christina Duffy, DO - Last Filed: 02/11/25 21:20> Critical Care Time Critical Care Time: Yes Total Critical Care Time: 35 Attestation: The high probability of a clinically significant, sudden or life threatening deterioration of the cardiac, urologic system(s) required my full and direct attention, intervention and personal management. The aggregate critical care time was [--] minutes. This time is in addition to time spent performing reported procedures but includes the following: [x] Data Review and interpretation [x] Patient assessment and monitoring of vital signs [x] Documentation [x] Medication orders and management Discharge Plan Departure Patient Disposition: [facility] Clinical Impression: Left ureteral stone, Pyelonephritis, Leukopenia, Sepsis
--- NOTE | 2025-02-11 09:05 | DI.CT.S_ITS ---
PROCEDURE: CT ABDOMEN PELVIS WO CON INDICATIONS: Left flank pain TECHNIQUE: Axial sections were acquired from the lung bases to the pubic symphysis. Coronal and sagittal reformats were performed. For radiation dose reduction, the following was used: automated exposure control, adjustment of mA and/or kV according to patient size. COMPARISON: None. FINDINGS: Image quality: Diagnostic. Peritoneum: No pneumoperitoneum or ascites. Bones: No acute osseous abnormality. Lower Chest: No acute abnormality. Liver: Normal in size and contour. Gallbladder: No stones or pericholecystic fluid. Biliary tree: No intrahepatic or extrahepatic biliary ductal dilatation. Pancreas: Within normal limits. Spleen: Normal in size and contour. Kidneys: Mild left hydroureteronephrosis secondary to a 4 mm calculus at the left ureterovesicular junction (2/128). Slightly enlarged appearance of the left kidney with perinephric fat stranding (4/54). No right hydronephrosis. No other obstructive urolithiasis. Adrenals: No adrenal nodularity. Bladder: Normal in size and wall thickness. : No acute abnormality. Stomach: Normal in size and contour. Bowel: Normal in diameter without any bowel obstruction. Appendix within normal limits (2/99) a. Scattered colonic diverticulosis. Lymph Nodes: Central mesenteric lymphadenopathy up to 1.3 cm in the short axis (4/35). No tesha hepatis lymphadenopathy. Multiple nonenlarged retroperitoneal nodes are present adjacent to the left renal artery (2/44; 4/47). Vascular: No abdominal aortic aneurysm. Soft Tissues: No acute abnormality. IMPRESSION: 1. Mild left hydroureteronephrosis secondary to a 4 mm calculus at the ureterovesicular junction. Consider superimposed pyelonephritis. 2. Nonspecific central mesenteric lymphadenopathy. Nonemergent colonoscopy screening recommended. Dictated by: Luis Bull M.D. on 02/11/2025 at 9:07 Approved by: Luis Bull M.D. on 02/11/2025 at 9:13
[2025-02-11] MEDS: ONDANSETRON 4 MG/2 ML INJ IV (09:23)
[2025-02-11] MEDS: HYDROMORPHONE 0.5 MG INJ IV (09:23)
[2025-02-11] MEDS: KETOROLAC 30 MG/ML VIAL 15 MG IV ×2 (09:23→20:05)
[2025-02-11] MEDS: SODIUM CHLORIDE 0.9% 1,000 ML 1000 ML IV ×3 (09:24→13:39)
[2025-02-11 09:41] LABS: Lactate (Lactic Acid) 2.9 mmol/L (0.7-2.1)
[2025-02-11 09:42] LABS: Alanine Aminotransferase 40 IU/L (<35); Albumin 4.6 g/dL (3.5-5.0); Albumin Globulin Ratio 1.4 (1.0-2.8); Alkaline Phosphatase 96 U/L (38-126); Aspartate Aminotransferase 51 IU/L (14-36); BUN Creatinine Ratio 44.2 (6-22); Blood Urea Nitrogen 23 mg/dL (7-17); Carbon Dioxide 23 mmol/L (22-32); Chloride 105 mmol/L (98-107); Estimated Glomerular Filt Rate > 60 mL/min (>60); Globulin 3.3 g/dL (1.7-4.1); Glucose 97 mg/dL (70-100); Lipase 168 U/L (23-300); Potassium 4.1 mmol/L (3.4-5.1); Sodium 140 mmol/L (137-145); Total Protein 7.9 g/dL (6.3-8.2)
[2025-02-11 09:43] LABS: HEMOLYSIS 73 (0-50)
--- NOTE | 2025-02-11 09:49 | EKG_ITS ---
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
[2025-02-11 10:15] LABS: Hematocrit 31.8 % (36-46); Hemoglobin 10.5 g/dL (12.0-16.0); Mean Corpuscular HGB Conc 33.1 % (30-36); Mean Corpuscular Hemoglobin 28.3 PG (26-34); Mean Corpuscular Volume 85.3 fL (80-100); Platelet Count 252 X10^3/uL (150-400); Red Blood Cell Count 3.73 X10^6/uL (4.0-5.2); Red Cell Distribution Width 16.4 % (11.6-14.8)
[2025-02-11 10:19] LABS: Add Manual Diff / Slide Review YES; White Blood Cell Count 0.7 X10^3/uL (4.5-11.0)
[2025-02-11 11:01] LABS: Reflexed Lactate in 2 Hours Y
[2025-02-11] MEDS: cefTRIAXone 2,000 MG in SODIUM CHLORIDE 0.9% 100 ML 200 MG IV (11:07)
[2025-02-11 11:20] LABS: Neutrophils Absolute Manual 427 /uL (3000-5900); Total Cells Counted 100
[2025-02-11 11:21] LABS: Anisocytosis 2+; Rouleaux 1+
[2025-02-11 11:23] LABS: Hematocrit 31.9 % (36-46); Hemoglobin 10.5 g/dL (12.0-16.0); Mean Corpuscular Hemoglobin 28.2 PG (26-34); Mean Corpuscular Volume 85.6 fL (80-100); Platelet Count 255 X10^3/uL (150-400); Red Blood Cell Count 3.73 X10^6/uL (4.0-5.2); Red Cell Distribution Width 16.6 % (11.6-14.8)
[2025-02-11 11:26] LABS: Add Manual Diff / Slide Review YES; White Blood Cell Count 0.9 X10^3/uL (4.5-11.0)
[2025-02-11 11:39] LABS: Lactate 2HR (Lactic Acid Rflx) 1.3 mmol/L (0.7-2.1)
[2025-02-11 12:11] LABS: Anisocytosis 2+; Neutrophils Absolute Manual 720 /uL (3000-5900); Rouleaux 1+; Total Cells Counted 100
[2025-02-11 12:43] LABS: Appearance Urine UA CLOUDY; Bilirubin Urine UA NEGATIVE (NEGATIVE); Color Urine UA YELLOW; Glucose Urine UA NEGATIVE (Negative); Ketones Urine UA TRACE (NEGATIVE); Leukocyte Esterase Urine UA TRACE (NEGATIVE); Nitrite Urine UA POSITIVE (Negative); Occult Blood Urine UA 2+ (Negative); Protein Urine UA 1+ (Negative); Specific Gravity Urine UA 1.015 (1.000-1.035); Urobilinogen Urine UA 0.2 E.U./dL (0.2)
[2025-02-11 13:02] LABS: pH Urine UA 5.5 (4.5-8.0)
[2025-02-11 13:08] LABS: Bacteria Urine Many (>30); Culture Indicated Urine Specimen Cultured; RBC Urine 5-10/HPF (0-5/HPF); Squamous Epithelial Cell Urine None Seen (0-5/HPF); Urine Volume 10mL (spun); WBC Urine 5-10/HPF (0-5/HPF)
[2025-02-11] MEDS: PIPERACILLIN/TAZO 4.5 GM in SODIUM CHLORIDE 0.9% 100 ML IV (13:52)
[2025-02-11 15:33] LABS: Lactate (Lactic Acid) 1.1 mmol/L (0.7-2.1)
[2025-02-11] MEDS: levoFLOXacin 750 MG/150 ML PIGGYBACK 100 MG IV (20:05)
[2025-02-11 20:37] LABS: Acinetobacter calcoa-baumannii Not Detected (Not Detect); Bacteroides fragilis Not Detected (Not Detect); CTX-M Resistance Not Detected (Not Detect); Candida albicans Not Detected (Not Detect); Candida auris Not Detected (Not Detect); Candida glabrata Not Detected (Not Detect); Candida krusei Not Detected (Not Detect); Candida parapsilosis Not Detected (Not Detect); Candida tropicalis Not Detected (Not Detect); Cryptococcus neoformans/gatti Not Detected (Not Detect); Enterobacter cloacae complex Not Detected (Not Detect); Enterobacterales Detected (Not Detect); Enterococcus faecalis Not Detected (Not Detect); Enterococcus faecium Not Detected (Not Detect); Haemophilus influenzae Not Detected (Not Detect); IMP Resistance Not Detected (Not Detect); KPC Resistance Not Detected (Not Detect); Klebsiella aerogenes Not Detected (Not Detect); Listeria monocytogenes Not Detected (Not Detect); NDM Resistance Not Detected (Not Detect); Neisseria meningitidis Not Detected (Not Detect); OXA-48-like Resistance Not Detected (Not Detect); Proteus species Not Detected (Not Detect); Pseudomonas aeruginosa Not Detected (Not Detect); Salmonella species Not Detected (Not Detect); Serratia marcescens Not Detected (Not Detect); Staphylococcus epidermidis Not Detected (Not Detect); Staphylococcus lugdunensis Not Detected (Not Detect); Staphylococcus species Not Detected (Not Detect); Stenotrophomonas maltophilia Not Detected (Not Detect); Streptococcus agalactiae (Gr B Not Detected (Not Detect); Streptococcus pneumonia Not Detected (Not Detect); Streptococcus pyogenes (Gr A) Not Detected (Not Detect); Streptococcus species Not Detected (Not Detect); VIM Resistance Not Detected (Not Detect); mcr-1 Resistance Not Detected (Not Detect)
[2025-02-11] MEDS: SODIUM CHLORIDE 0.9% 1,000 ML 150 ML IV (20:55)
--- NOTE | 2025-02-11 21:08 | PC.NURSE ---
Addendum entered by Fallon Holm R.N. 02/11/25 21:28: 02/11/25 at 2128 called prov again and spoke with charge nurse JERRY Cody., and gave report on patient. Charge nurse aware of pt estimated arrival/time from [facility] Original Note: 02/11/25 at 2108 This RN called [facility] at [phone] and spoke with [facility] who reports nurse aware of pending transport via [facility] to them, and aware of my attempt to give report. FELIBERTO Yoder took this RN's number to have nurse return our call for report. Informed [facility] ETA of pt to their facility ~ 2140
== END 2025-02-11 21:15 | disposition short-term general hospital (02) ==
PROVIDERS: Emergency Medicine; Emergency Provider Emergency Medicine
DX: A41.50 Gram-negative sepsis, unspecified (principal); N13.6 Pyonephrosis; D72.819 Decreased white blood cell count, unspecified; Z87.442 Personal history of urinary calculi
CPT/HCPCS: 36415; 74176; 80053; 81001; 81003; 83605; 83690; 85007; 85025; 87040; 87077; 87086; 87154; 87186; 93005; 93010; 96361; 96365; 96367; 96375; 96376; 99284; 99291; J0696; J1171; J1885; J1956; J2405; J2543